=== PATIENT | female | born 1970 | race Caucasian/White ===

== ENCOUNTER 2018-09-07 17:30 | Emergency (ER) | payer OTHER ==
--- OUTSIDE RECORDS SUMMARY | 2018-09-07 17:38 | XMS REPORT | Continuity of Care Document ---
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 Date Identification Numbers Payment Provider Subscriber Effective: Policy Number: [id number] Lifetime Benefit Brittany Jameson 2018 Solution PayID: [facility] [address] ALISSA Sheikh [phone] Advance Directives Description No Information Available Problems Active Problems Provider Date Colitis PRASANTH Monroe Onset: 09/01/2018 Family History Date Family Member(s) Observation Comments Father Lymphoma Large B Cell / brain Father due to Lymphoma () Mother due to COPD () Mother due to Seizure disorder () Mother due to Crrohsis/ non Etoh () specific Social History Type Date Description Comments Sex Unknown Education Highest Level Completed, Master's Degree Occupation Teacher [employer] ETOH Use Occasionally consumes alcohol Tobacco Use Start: Unknown Patient has never smoked Recreational Drug Use Never Used Drugs Smoking Status Reviewed: 09/01/18 Patient has never smoked Exercise Type/Frequency Exercises regularly Allergies, Adverse Reactions, Alerts Active Allergies Reaction Severity Comments Date Erythromycin Nausea Moderate 08/15/2018 Medications Active Medications SIG Qnty Indications Ordering Provider Date Vitamin D3 take 1 capsule by 4caps E55.9 Gilbert 09/01/2018 [id number] mouth weekly MD Claritza Capsules Mesalamine 2 by mouth a day Antwan Montiel [place] 800mg Tablets DR Tara Description No Information Available Vital Signs Date Vital Result Comment 09/01/2018 3:19pm Height 64.25 inches 5'4.25" Weight 166.50 lb BP Systolic Sitting 110 mmHg BP Diastolic Sitting 50 mmHg BMI (Body Mass Index) 28.4 kg/m2 08/16/2018 9:56am Height 64.25 inches 5'4.25" Weight 164.00 lb Heart Rate 70 /min BP Systolic 110 mmHg BP Diastolic 60 mmHg Respiratory Rate 16 /min O2 % BldC Oximetry 98 % room air BMI (Body Mass Index) 27.9 kg/m2 Results Test Date Facility Test Result H/L Range Note CBC Auto Diff 08/17/2018 [facility] White Blood 10.1 10^3/uL N 3.5-10.[address] [place] [address] [phone] Red Blood Count 4.36 10^6/uL N 3.70-4.87 Hemoglobin 12.7 g/dL N 12.0-16.0 Hematocrit 39 % N 33-41 Mean Corpuscular Volume 89 fL N 80-97 Mean Corpuscular Hemoglobin 29 pg N 27-31 Mean Corpuscular HGB Conc 33 g/dL N 31-36 Red Cell Distribution Width 13 % N 10.5-15 Platelet Count 281 10^3/uL N 150-450 Mean Platelet Volume 7.5 fL N 7.4-10.4 Abs Neutrophils 8.5 10^3/uL High 1.5-7.7 Abs Lymphocytes 0.9 10^3/uL Low 1.0-4.8 Abs Monocytes 0.6 10^3/uL N 0-0.8 Abs Eosinophils 0.1 10^3/uL N 0-0.6 Abs Basophils 0.1 10^3/uL N 0-0.2 Abs Nucleated RBC 0 10^3/uL Granulocyte % 84.1 % Lymphocyte % 8.8 % Monocyte % 5.7 % Eosinophil % 0.8 % Basophil % 0.6 % Nucleated Red Blood Cells % 0 Lipid Profile 08/17/2018 [facility] Triglycerides 86 mg/dL 1 (Trig/Chol/HDL) [address] [place] [address] [phone] Cholesterol 202 mg/dL 2 HDL Cholesterol 55.4 mg/dL 3 LDL Cholesterol 129 mg/dL 4 Comp Metabolic Panel 08/17/2018 [facility] Sodium 139 mmol/L N 135-145 [address] [place] [address] [phone] Potassium 4.7 mmol/L N 3.5-5.0 Chloride 106 mmol/L N 101-111 Co2 Carbon Dioxide 25 mmol/L N 22-32 Anion Gap 8 mmol/L N 2-11 Glucose 94 mg/dL N 70-100 Blood Urea Nitrogen 13 mg/dL N 6-24 Creatinine 0.89 mg/dL N 0.51-0.95 BUN/Creatinine Ratio 14.6 N 8-20 Calcium 9.6 mg/dL N 8.6-10.3 Total Protein 6.7 g/dL N 6.4-8.9 Albumin 4.1 g/dL N 3.2-5.2 Globulin 2.6 g/dL N 2-4 Albumin/Globulin Ratio 1.6 N 1-3 Total Bilirubin 0.50 mg/dL N 0.2-1.0 Alkaline Phosphatase 89 U/L N 34-104 Alt 16 U/L N 7-52 Ast 17 U/L N 13-39 Egfr Non- 68.6 >60 Egfr 83.0 >60 5 Laboratory test 08/17/2018 [facility] TSH (Thyroid 3.45 mcIU/mL N 0.34-5.[address] [place]) [place] [address] [phone] Vitamin D Total 25(Oh) 18.3 ng/mL Low 20-50 6 1 Desirable: <150 Borderline High: 150-199 High: 200-499 Very High: >500 2 Desirable: <200 Borderline High: 200-239 High: >239 3 Low: <40 Desirable: 40-60 High: >60 4 Desirable: <100 Near Optimal: 100-129 Borderline High: 130-159 High: 160-189 Very High: >189 5 Because ethnic data is not always readily available, this report includes an eGFR for both -Americans and non- Americans. The National Kidney Disease Education Program (NKDEP) does not endorse the use of the MDRD equation for patients that are not between the ages of 18 and 70, are , have extremes of body size, muscle mass, or nutritional status, or are non- or non-. According to the National Kidney Foundation, irrespective of diagnosis, the stage of the disease is based on the level of kidney function: Stage Description GFR(mL/min/1.73 m(2)) 1 Kidney damage with normal or decreased GFR 90 2 Kidney damage with mild decrease in GFR 60-89 3 Moderate decrease in GFR 30-59 4 Severe decrease in GFR 15-29 5 Kidney failure <15 (or dialysis) 6 Total 25-Hydroxyvitamin D2 and D3 (25-OH-VitD) <10 ng/mL (severe deficiency) 10-19 ng/mL (mild to moderate deficiency) 20-50 ng/mL (optimum levels) 51-80 ng/mL (increased risk of hypercalciuria) >80 ng/mL (toxicity possible) Procedures Date Code Description Status 02/04/2016 [id number] Colonoscopy Completed 01/15/2010 [id number] Mammogram Completed 10/06/2007 [id number] Colonoscopy Completed 06/21/2001 [id number] Colonoscopy Completed Encounters Type Date Location Provider Dx Diagnosis Office Visit 08/16/2018 [facility] Gilbert Z00.01 Encounter for 9:30a MD Claritza general adult medical exam w abnormal findings K51.90 Ulcerative colitis, unspecified, without complications M54.5 Low back pain M54.2 Cervicalgia F41.9 Anxiety disorder, unspecified Plan of Treatment 09/01/2018 - JAYLYN Monroe01.419 Encounter for gynecological examination ( general) (routine)New Labs:Cytology, Ordered: 09/01/18Z12.31 Encounter for screening mammogram for malignant neoplasm ofE55.9 Vitamin D deficiency, unspecifiedNew Medication:Vitamin D3 05690 Unit - take 1 capsule by mouth weeklyNew Labs:Vitamin D Total 25(Oh), Ordered: 09/01/18
--- OUTSIDE RECORDS SUMMARY | 2018-09-07 17:38 | XMS REPORT | Continuity of Care Document ---
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 Date Identification Numbers Payment Provider Subscriber Effective: Policy Number: [id number] Lifetime Benefit Brittany Jameson 2018 Solution PayID: [id number] [address] [place] Sheikh [address] Advance Directives Description No Information Available Problems Description No Information Family History Date Family Member(s) Observation Comments Father Lymphoma Large B Cell / brain Father due to Lymphoma () Mother due to COPD () Mother due to Seizure disorder () Mother due to Crrohsis/ non Etoh () specific Social History Type Date Description Comments Sex Unknown Education Highest Level Completed, Master's Degree 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 Occasionally consumes alcohol Tobacco Use Start: Unknown Patient has never smoked Recreational Drug Use Never Used Drugs Smoking Status Reviewed: 08/16/18 Patient has never smoked Allergies, Adverse Reactions, Alerts Date Description Reaction Status Severity Comments 08/15/2018 Erythromycin Nausea Active Moderate Medications Medication Date Status Form Strength Qnty SIG Indications Ordering Provider Mesalamine Active Tablets DR 800mg 2 by Tiana, 0 alex Moncada MD day Immunizations Description No Information Available Vital Signs Date Vital Result Comment 08/16/2018 9:56am Height 64.25 inches 5'4.25" Weight 164.00 lb Heart Rate 70 /min BP Systolic 110 mmHg BP Diastolic 60 mmHg Respiratory Rate 16 /min O2 % BldC Oximetry 98 % room air BMI (Body Mass Index) 27.9 kg/m2 Results Description No Information Available Procedures Date Code Description Status 02/04/2016 [id number] Colonoscopy Completed 01/15/2010 [id number] Mammogram Completed 10/06/2007 [id number] Colonoscopy Completed 06/21/2001 [id number] Colonoscopy Completed Encounters Description No Information Available Plan of Treatment Future Appointment(s):09/01/2018 3:30 pm - PRASANTH [facility] at [facility] - Gilbert Jerry MDZ00.00 Encounter for general adult medical examination without abnoNew Labs:Lipid Profile (Trig/Chol/HDL), Ordered: Comp Metabolic Panel, Ordered: 08/16/18Follow up:set up with Lashanda for Motion Picture Scene Builder examK51.90 Ulcerative colitis, unspecified, without complicationsNew Labs:CBC Auto Diff, Ordered: 08/16/18M54.5 Low back painM54.2 VmnizbojkghW06.9 Anxiety disorder, unspecifiedNew Labs:TSH (Thyroid Stim Horm), Ordered: 08/16/18Vitamin D Total 25(Oh), Ordered: 08/16/18
[2018-09-07 17:54] VITALS: BP 117/73
--- NOTE | 2018-09-07 17:54 | UC ---
Skin Complaint HPI - HPI Summary HPI Summary: 47-year-old woman comes in with chief complaint of sore throat for 4-5 days. Sore throat hurts more when she swallows. Minimal rhinorrhea. She's tried several [id number] medicines which to help some but then the pain comes back. No chest congestion. 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 - History of Current Complaint Time Seen by Provider: 09/07/18 17:38 Stated Complaint: SORE THROAT Hx Last Menstrual Period: 11/14/13 - Allergy/Home Medications Allergies/Adverse Reactions: Allergies Allergy/AdvReac Type Severity Reaction Status Date / Time erythromycin base Allergy GI Upset Verified 09/07/18 17:46 Home Medications: Home Medications Acetaminophen [Tylenol Extra Strength] 1,000 mg PO Q6HR PRN 09/07/18 [History Confirmed 09/07/18] Cholecalciferol TAB* [Vitamin D TAB*] 1 dose PO WEEKLY 09/07/18 [History Confirmed 09/07/18] Ibuprofen TAB* [Advil TAB*] 600 mg PO Q8H PRN 09/07/18 [History Confirmed ] PMH/Surg Hx/FS Hx/Imm Hx Previously Healthy: Yes - Surgical History Surgical History: Yes Surgery Procedure, Year, and Place: gall bladder, lasik - Family History Known Family History: Positive: Non-Contributory - Social History Alcohol Use: Occasionally Substance Use Type: None Smoking Status (MU): Never Smoked Tobacco Review of Systems All Other Systems Reviewed And Are Negative: Yes Constitutional: Positive: Negative Skin: Positive: Negative Eyes: Positive: Negative ENT: Positive: Sore Throat, Nasal Discharge Respiratory: Positive: Negative Cardiovascular: Positive: Negative Gastrointestinal: Positive: Negative Motor: Positive: Negative Neurovascular: Positive: Negative Musculoskeletal: Positive: Negative Neurological: Positive: Negative Psychological: Positive: Negative Is Patient Immunocompromised?: Yes - ON ASACOL Physical Exam Triage Information Reviewed: Yes Appearance: No Pain Distress, Well-Nourished, Ill-Appearing - MILD Vital Signs: Initial Vital Signs Temp 97.7 F 09/07/18 17:48 Pulse 58 09/07/18 17:48 Resp 16 09/07/18 17:48 BP 117/73 09/07/18 17:48 Pulse Ox 100 09/07/18 17:48 Vital Signs Reviewed: Yes Eye Exam: Normal Eyes: Positive: Conjunctiva Clear ENT: Positive: Pharyngeal erythema, Nasal congestion, Nasal drainage, TMs normal Neck exam: Normal Neck: Positive: Supple Respiratory: Positive: Lungs clear, Normal breath sounds, No respiratory distress Cardiovascular: Positive: RRR Musculoskeletal Exam: Normal Musculoskeletal: Positive: Strength Intact, ROM Intact Neurological Exam: Normal Neurological: Positive: Alert, Muscle Tone Normal Psychological Exam: Normal Psychological: Positive: Age Appropriate Behavior Skin Exam: Normal Course/Dx - Course Course Of Treatment: DISCUSSED VIRAL VERSES BACTERIAL INFECTION AND THE ROLE OF ANTIBIOTICS. THE PATIENT PREFERS TO BE ON ANTIBIOTICS AT THIS TIME. ADDITIONALLY PT IS ON ASACOL - Diagnoses Provider Diagnosis: Pharyngitis Discharge - Sign-Out/Discharge Documenting (check all that apply): Patient Departure All imaging exams completed and their final reports reviewed: No Studies - Discharge Plan Condition: Stable Disposition: HOME Prescriptions: Amoxicillin PO (*) [Amoxicillin 875 MG (*)] 875 mg PO BID #20 tab Patient Education Materials: Pharyngitis (ED) Referrals: Gilbert Jerry MD [Primary Care Provider] - Additional Instructions: FOLLOW UP WITH YOUR DOCTOR IF NOT COMPLETELY IMPROVED. GET RECHECKED SOONER IF YOUR CONDITION WORSENS OR ANY QUESTIONS OR CONCERNS. - Billing Disposition and Condition Condition: STABLE Disposition: Home
== END 2018-09-07 18:20 | disposition home or self-care (01) ==
LOC: UCCORT 17:30
DX: J02.9 Acute pharyngitis, unspecified (principal); Z88.1 Allergy status to other antibiotic agents
CPT/HCPCS: 87651; 99212; G0463